=== PATIENT | female | born 1980 | race African-American/Black ===

== ENCOUNTER 2017-11-04 17:15 | Emergency (ER) | payer SELFPAY ==
--- NOTE | 2017-11-04 20:42 | ER ---
Nurse's Notes [facility] Name: Carissa Colorado Age: 37 yrs Sex: Female : 1980 Arrival Date: 11/04/2017 Time: 17:18 Bed Waiting Private MD: out of town, doctor Diagnosis: Presentation: 11/04 17:20 Presenting complaint: Patient states: "I have a lot of pressure in my uterus and when I sv pass a big clot it just fills back up." Started yesterday. c/o abd cramping. Transition of care: patient was not received from another setting of care. Onset of symptoms was November 03, 2017. 17:20 Method Of Arrival: Ambulatory sv 17:20 Acuity: MANDA 3 sv Triage Assessment: 17:20 General: Appears uncomfortable, obese, Behavior is calm, cooperative, appropriate for sv age. Pain: Complains of pain in right lower quadrant and left lower quadrant Pain currently is 7 out of 10 on a pain scale. Quality of pain is described as crampy, Is intermittent. Neuro: Level of Consciousness is awake, alert, obeys commands, Oriented to person, place, time, situation, Moves all extremities. Full function Gait is steady, Speech is normal. Respiratory: Respiratory effort is even, unlabored, Respiratory pattern is regular, symmetrical. Derm: Skin is normal. Historical: - Allergies: 17:23 Sulfa (Sulfonamide Antibiotics); sv - Home Meds: 17:23 phentermine oral oral [Active]; sv - PMHx: 17:23 legally blind; sv - PSHx: 17:23 Knee surgery; Ankle surgery; ; sv - Immunization history:: Adult Immunizations up to date. - Social history:: Smoking status: Patient uses tobacco products, smokes one pack cigarettes per day. - Ebola Screening: : No symptoms or risks identified at this time. Vital Signs: 17:22 BP 129 / 57; Pulse 86; Resp 18; Temp 97.7(TE); Pulse Ox 99% ; Weight 83.91 kg; Height 5 sv ft. 1 in. (154.94 cm); Pain 7/10; 17:22 Body Mass Index 34.95 (83.91 kg, 154.94 cm) sv ED Course: 17:18 Patient arrived in ED. mr 17:19 out of town, doctor is Private Physician. mr 17:22 Triage completed. sv 17:23 Arm band placed on right wrist. sv Administered Medications: No medications were administered Outcome: 20:42 Eloped from waiting room, before seeing physician Time discovered patient gone: November 04 lp 2018 at 20:42 20:42 Patient left the ED. lp1 Signatures: Miguelina Siddiqui RN RN sv Karen Gavin mr Martina Poe RN RN lp1 Corrections: (The following items were deleted from the chart) 17:24 17:22 BP 129 / 57; Pulse 86bpm; Resp 18bpm; Pulse Ox 99%; 83.91 kg; Height 5 ft. 1 in.; sv BMI: 34.9; Pain 7/10; sv
[2017-11-04 20:55] VITALS: BP 129/57; TEMP 97.7; O2SAT 99
== END 2017-11-04 20:42 | disposition left against medical advice (07) ==
LOC: ER 17:15
DX: Z53.21 Procedure and treatment not carried out due to patient leaving prior to being seen by health care provider (principal)
CPT/HCPCS: 99281

== ENCOUNTER 2018-04-25 17:23 | Emergency (ER) | payer SELFPAY ==
[2018-04-25] MEDS ORDERED: IBUPROFEN 400 MG TAB ONE (17:50)
--- NOTE | 2018-04-25 18:25 | RAD REPORT ---
EXAM DESCRIPTION: RAD - Tib Fib Left - 04/25/2018 6:17 pm CLINICAL HISTORY: fall today;Pain COMPARISON: None FINDINGS: Left tibia/ fibula and left foot - multiple projections are submitted. No fracture or dislocation is identified.
--- NOTE | 2018-04-25 19:16 | EDPHYS ---
Physician Documentation [facility] Name: Carissa Colorado Age: 37 yrs Sex: Female : 1980 Arrival Date: 04/25/2018 Time: 17:24 Bed 20 Private MD: None, None ED Physician Angelito Pierre HPI: 04/25 17:45 This 37 yrs old Black Female presents to ER via Ambulatory with complaints of Fall cp Injury - LEG. 17:45 Details of fall: The patient fell from an upright position, while walking. cp 17:45 Onset: The symptoms/episode began/occurred today. Associated injuries: The patient cp sustained left knee and left lower leg, contusion, painful injury. Severity of symptoms: in the emergency department the symptoms are unchanged, despite home interventions. 17:45 Patient reports trip and stumble, causing her to strike left lower leg against cp furniture today. 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 - Social history:: Smoking status: Patient uses tobacco products, denies chronic smoking, but will smoke occasionally. - Ebola Screening: : No symptoms or risks identified at this time. ROS: 18:00 Constitutional: Negative for body aches, chills, fever, poor PO intake. cp 18:00 Eyes: Negative for injury, pain, redness, and discharge. cp 18:00 ENT: Negative for drainage from ear(s), ear pain, sore throat, difficulty swallowing, difficulty handling secretions. 18:00 Cardiovascular: Negative for chest pain, edema, palpitations. 18:00 Respiratory: Negative for cough, shortness of breath, wheezing. 18:00 Abdomen/GI: Negative for abdominal pain, vomiting, diarrhea, constipation. 18:00 Back: Negative for pain at rest, pain with movement, radiated pain. 18:00 MS/extremity: Positive for pain, tenderness, Negative for decreased range of motion, deformity, erythema, paresthesias, warmth. 18:00 Skin: Negative for cellulitis, rash. 18:00 Neuro: Negative for altered mental status, headache, loss of consciousness, syncope, near syncope, weakness. 18:00 All other systems are negative. Exam: 18:05 Constitutional: The patient appears in no acute distress, alert, awake, non-toxic, well cp developed, well nourished. 18:05 Head/Face: Normocephalic, atraumatic. cp 18:05 Eyes: Periorbital structures: appear normal, Conjunctiva: normal, no exudate, no injection, Lids and lashes: appear normal, bilaterally. 18:05 ENT: External ear(s): are unremarkable, Nose: is normal, Mouth: Lips: moist, Posterior pharynx: is normal, airway is patent, Voice: is normal. 18:05 Neck: ROM/movement: is normal, is supple, without pain, no range of motions limitations, no nuchal rigidity. 18:05 Chest/axilla: Inspection: normal. 18:05 Cardiovascular: Rate: normal, Rhythm: regular. 18:05 Respiratory: the patient does not display signs of respiratory distress, Respirations: normal, no use of accessory muscles, no retractions, no splinting, no tachypnea, labored breathing, is not present. 18:05 Abdomen/GI: Inspection: abdomen appears normal. 18:05 Back: pain, is absent, ROM is normal. 18:05 Musculoskeletal/extremity: Extremities: grossly normal except: noted in the left duarte and left knee: pain, tenderness, noted well healed surgical scar anterior left knee, There is no evidence of decreased ROM, deformity, swelling, Perfusion: the extremity is normally perfused throughout, Sensation intact. 18:05 Skin: cellulitis, is not appreciated, no rash present. Vital Signs: 17:31 BP 118 / 60; Pulse 95; Resp 18; Temp 97.3; Pulse Ox 98% on R/A; Weight 83.91 kg; Height la1 5 ft. 1 in. (154.94 cm); 18:44 BP 144 / 78; Pulse 92; Resp 19; Pulse Ox 100% on R/A; Pain 7/10; em 17:31 Body Mass Index 34.96 (83.91 kg, 154.94 cm) la1 MDM: 17:33 Patient medically screened. cp 18:00 Differential diagnosis: contusion, fracture. cp 18:58 Data reviewed: vital signs, nurses notes, radiologic studies, plain films. cp 18:58 Test interpretation: by ED physician or midlevel provider: plain radiologic studies. cp Counseling: I had a detailed discussion with the patient and/or guardian regarding: the historical points, exam findings, and any diagnostic results supporting the discharge/admit diagnosis, radiology results, to return to the emergency department if symptoms worsen or persist or if there are any questions or concerns that arise at home. Response to treatment: the patient's symptoms have mildly improved after treatment, and as a result, I will discharge patient. 04/25 17:42 Order name: XRAY Tib Fib LEFT cp 04/25 17:42 Order name: XRAY Foot LEFT 3 View cp 04/25 18:58 Order name: Crutches; Complete Time: 19:14 cp 04/25 18:58 Order name: Leonardo wrap-joint; Complete Time: 19:14 cp Administered Medications: 17:49 Drug: Ibuprofen 800 mg Route: PO; em 19:01 Follow up: Response: No adverse reaction em Disposition: 04/25/18 18:59 Discharged to Home. Impression: Pain in left lower leg, Pain in left foot. - Condition is Stable. - Discharge Instructions: Elastic Bandage and RICE, Musculoskeletal Pain. - Prescriptions for Anaprox DS 550 mg Oral Tablet - take 1 tablet by ORAL route every 12 hours As needed; 20 tablet. - Medication Reconciliation Form, Thank You Letter, Antibiotic Education, Prescription Opioid Use form. - Follow up: Private Physician; When: 5 - 6 days; Reason: Recheck today's complaints. - Problem is new. - Symptoms have improved. Addendum: 04/27/2018 11:09 Co-signature as Attending Physician, Angelito Pierre MD. g s Signatures: Dispatcher [employer] [facility] Jamison Damian, FOOD SERVICE UTILITY WORKER FOOD SERVICE UTILITY WORKER Abhijit Gruber RN RN la1 Wes Koroma PA PA cp Angelito Pierre MD MD gs Corrections: (The following items were deleted from the chart) 04/25 19:15 18:59 04/25/2018 18:59 Discharged to Home. Impression: Pain in left lower leg; Pain in em left foot. Condition is Stable. Forms are Medication Reconciliation Form, Thank You Letter, Antibiotic Education, Prescription Opioid Use. Follow up: Private Physician; When: 5 - 6 days; Reason: Recheck today's complaints. Problem is new. Symptoms have improved. cp
--- NOTE | 2018-04-25 19:16 | ER ---
Nurse's Notes [facility] Name: Carissa Colorado Age: 37 yrs Sex: Female : 1980 Arrival Date: 04/25/2018 Time: 17:24 Bed 20 Private MD: None, None Diagnosis: Pain in left lower leg;Pain in left foot Presentation: 04/25 17:30 Presenting complaint: Patient states: I was at work and bumped in to something on my la1 left duarte and now the pain is radiating up my leg. Transition of care: patient was not received from another setting of care. Onset of symptoms was April 25, 2018. Risk Assessment: Do you want to hurt yourself or someone else? Patient reports no desire to harm self or others. Initial Sepsis Screen: Does the patient meet any 2 criteria? No. Patient's initial sepsis screen is negative. Does the patient have a suspected source of infection? No. Patient's initial sepsis screen is negative. Care prior to arrival: None. 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 - Social history:: Smoking status: Patient uses tobacco products, denies chronic smoking, but will smoke occasionally. - Ebola Screening: : No symptoms or risks identified at this time. Screenin:43 Abuse screen: Denies threats or abuse. Nutritional screening: No deficits noted. em Tuberculosis screening: No symptoms or risk factors identified. Fall Risk None identified. Assessment: 17:46 General: Appears in no apparent distress. uncomfortable, Behavior is calm, cooperative. em Pain: Complains of pain in left leg Pain currently is 9 out of 10 on a pain scale. Pain began 2 hours ago. Neuro: Level of Consciousness is awake, alert, obeys commands, Oriented to person, place, time, situation. Cardiovascular: Capillary refill < 3 seconds Patient's skin is warm and dry. Respiratory: Airway is patent Respiratory effort is even, unlabored, Respiratory pattern is regular, symmetrical. GI: Abdomen is round non-distended. : No signs and/or symptoms were reported regarding the genitourinary system. EENT: No signs and/or symptoms were reported regarding the EENT system. Derm: Skin is intact, Skin is pink, warm \T\ dry. Musculoskeletal: Capillary refill < 3 seconds, Range of motion: limited in left knee and left ankle Swelling absent Reports pain in left knee, left duarte and dorsum of left foot. 17:46 Reassessment: I agree with assessment completed by Jamison Damian LVN. aa5 18:43 Reassessment: Patient appears in no apparent distress at this time. Patient and/or em family updated on plan of care and expected duration. Pain level reassessed. Patient is alert, oriented x 3, equal unlabored respirations, skin warm/dry/pink. rates pain 7/10. Vital Signs: 17:31 BP 118 / 60; Pulse 95; Resp 18; Temp 97.3; Pulse Ox 98% on R/A; Weight 83.91 kg; Height la1 5 ft. 1 in. (154.94 cm); 18:44 BP 144 / 78; Pulse 92; Resp 19; Pulse Ox 100% on R/A; Pain 7/10; em 17:31 Body Mass Index 34.96 (83.91 kg, 154.94 cm) la1 ED Course: 17:24 Patient arrived in ED. sb2 17:25 None, None is Private Physician. sb2 17:31 Triage completed. la1 17:31 Arm band placed on right wrist. la1 17:32 Wes Koroma PA is PHCP. cp 17:32 Angelito Pierre MD is Attending Physician. cp 17:35 Jamison Damian LVN is Primary Nurse. em 17:43 Patient has correct armband on for positive identification. Bed in low position. Call em light in reach. 18:15 XRAY Tib Fib LEFT In Process Unspecified. EDMS 18:15 XRAY Foot LEFT 3 View In Process Unspecified. EDMS 19:14 No provider procedures requiring assistance completed. Patient did not have IV access em during this emergency room visit. Crutch training done. Leonardo wrap to left knee. Administered Medications: 17:49 Drug: Ibuprofen 800 mg Route: PO; em 19:01 Follow up: Response: No adverse reaction em Outcome: 18:59 Discharge ordered by . cp 19:14 Discharged to home with crutches. em 19:14 Condition: good 19:14 Discharge instructions given to patient, Instructed on discharge instructions, follow up and referral plans. medication usage, Demonstrated understanding of instructions, follow-up care, medications, Prescriptions given X 1. 19:15 Patient left the ED. em Signatures: Dispatcher [employer] EDJamison Lopez, ESTHETICIAN SPA ESTHETICIAN SPA em Sheba Israel RN RN aa5 Abhijit Bermudez RN RN la1 Wes Koroma PA PA cp Billeau, Sheri sb2
[2018-04-25 19:36] VITALS: TEMP 97.3
[2018-04-25 19:37] VITALS: BP 144/78; O2SAT 100
--- NOTE | 2018-04-27 09:25 | RAD REPORT ---
EXAM DESCRIPTION: RAD - Foot Left 3 View - 04/25/2018 6:17 pm CLINICAL HISTORY: Fall today;Pain COMPARISON: None FINDINGS: Left tibia/ fibula and left foot - multiple projections are submitted. No fracture or dislocation is identified.
== END 2018-04-25 19:15 | disposition home or self-care (01) ==
LOC: ER 17:23
DX: M79.662 Pain in left lower leg (principal); M79.672 Pain in left foot; W01.190A Fall on same level from slipping, tripping and stumbling with subsequent striking against furniture, initial encounter; Y93.01 Activity, walking, marching and hiking; H54.8 Legal blindness, as defined in USA
CPT/HCPCS: 99284

== ENCOUNTER 2021-04-26 06:00 | Emergency (ER) | payer OTHER ==
--- OUTSIDE RECORDS SUMMARY | 2021-04-26 06:03 | XMS REPORT | Continuity of Care Document ---
:[address] [facility] t Address [address] [place] [address] Care Team Providers Name Role Phone MILAGROS BRO Primary Care Physician Unavailable DANIELA UP Attending Clinician Unavailable Kayce TALBOT Attending Clinician Unavailable Bishnu GARNER, R Attending Clinician Ramos GOETZ Attending Clinician Unavailable Zoe Petersen MD Attending Clinician Pcp-Lab Attending Clinician Unavailable Milagros Bro MD Attending Clinician Doctor Unassigned, Name Attending Clinician Unavailable SNOWDEN Attending Clinician Unavailable MILAGROS BRO Attending Clinician Unavailable 2, Lab Attending Clinician Unavailable Kyung GARNER, Romy Attending Clinician Unavailable Benjamin GARNER, October Attending Clinician DANIELA UP Admitting Clinician Unavailable Payers Payer Name Policy Type Policy Number Effective Date Expiration Date [place] [facility] [id number] 2007 00:00:00 [employer] [id number] 2018 OF [facility] 00:00:00 Problems Condition Condition Condition Status Onset Resolution Last Treating Co mments Source Name Details Category Date Date Treatment Clinician Date Right Right Disease Active Univers facial facial 8-25 ity of pain pain 00:00: [place] [address] Medical Branch Eye Eye Disease Active Univers swelling, swelling, 8-25 ity of right right 00:00: [place] [facility] Dizzy Dizzy Disease Active Univers spells spells 8-25 ity of 00:00: [place] 00 Medical Branch Pain in Pain in Disease Active Univers both lower both lower 8-25 it y of legs legs 00:00: [place] [facility] Breast Breast Disease Active Univers pain pain 8-25 ity of 00:00: [place] [facility] Tobacco Tobacco Disease Active Univers use use 8-25 ity of disorder disorder 00:00: [place] [facility] Obesity Obesity Disease Active Univers (BMI (BMI 8-23 ity of 30-39.9) 30-39.9) 00:00: [place] [facility] Stress Stress Disease Active Univers incontinen incontinen 8-23 it y of ce ce 00:00: [place] [facility] Allergies, Adverse Reactions, Alerts Allergy Allergy Status Severity Reaction(s) Onset Inactive Treating Comm ents Source Name Type Date Date Clinician Sulfa Propensi Active Itching Univers (Sulfona ty to 3-05 ity of mide adverse 00:00: [place] Antibiot reaction 00 Medica l ics) s Branch SULFA Drug Active ITCHING Univers (SULFONA Class 3-05 ity of MIDE 00:00: [place] ANTIBIOT 00 Medical ICS) Branch Social History Social Habit Start Date Stop Date Quantity Comments Source Sex Assigned At Universit y of [facility] Exposure to Not sure [facility] SARS-CoV-2 (event) [facility] Tobacco use and 2020-03-21 2020-03-21 Never used Universit y of exposure 00:00:00 00:00:00 [facility] Cigarettes smoked 2020-03-21 2020-03-21 Univers ity of current (pack per 00:00:00 00:00:00 ) - Reported Branch Cigarette 2020-03-21 2020-03-21 University of pack-years 00:00:00 00:00:00 [facility] Alcohol intake 2020-03-21 2020-03-21 Current University 00:00:00 00:00:00 [facility]-drinker [facility] alcohol [place] (finding) History of tobacco 2018-12-09 Cigar Smoker Univ ersity of use 00:00:00 [facility] Smoking Status Start Date Stop Date Source Former smoker 2020-03-21 00:00:00 2020-03-21 00:00:00 Universi ty of [facility] Current some day 2019-04-09 00:00:00 [facility] smoker Medical Branch Medications Ordered Filled Start Stop Current Ordering Indication Dosage Frequency Signature Comments Components Source Medication Medication Date Date Medication? Clinician (SIG) Name Name phentermine 2019-0 2020- No 37.5mg Take 37.5 Univers 37.5 mg 7-03 07-03 mg by ity of capsule 20:30: 00:00 mouth [place] 18 :00 every Medical morning. Branch phentermine 2020- No 37.5mg Take 37.5 Univers 37.5 mg 7-03 07-03 mg by ity of capsule 20:30: 00:00 mouth [place] 18 :00 every Medical morning. Branch meloxicam 2019-0 Yes [id number] 7.5mg Take 1 Univers 7.5 mg 7-03 9107 tablet by ity of tablet 00:00: mouth [place] 00 daily. Medical Branch meloxicam 2019-0 Yes [id number] 7.5mg Take 1 Univers 7.5 mg 7-03 9107 tablet by ity of tablet 00:00: mouth [place] 00 daily. [facility] Branch meloxicam 2019-0 Yes [id number] 7.5mg Take 1 Univers 7.5 mg 7-03 9107 tablet by ity of tablet 00:00: mouth [place] 00 daily. Medical Branch meloxicam 2019-0 Yes [id number] 7.5mg Take 1 Univers 7.5 mg 7-03 9107 tablet by ity of tablet 00:00: mouth [place] 00 daily. Medical Branch meloxicam 2019-0 Yes [id number] 7.5mg Take 1 Univers 7.5 mg 7-03 9107 tablet by ity of tablet 00:00: mouth [place] 00 daily. [facility] Branch meloxicam 2019-0 Yes [id number] 7.5mg Take 1 Univers 7.5 mg 7-03 9107 tablet by ity of tablet 00:00: mouth [place] 00 daily. Medical Branch meloxicam 2019-0 Yes [id number] 7.5mg Take 1 Univers 7.5 mg 7-03 9107 tablet by ity of tablet 00:00: mouth [place] 00 daily. [facility] Branch meloxicam 2019-0 Yes [id number] 7.5mg Take 1 Univers 7.5 mg 7-03 9107 tablet by ity of tablet 00:00: mouth [place] 00 daily. [facility] meloxicam 2019-0 Yes [id number] 7.5mg Take 1 Univers 7.5 mg 7-03 9107 tablet by ity of tablet 00:00: mouth [place] 00 daily. [facility] meloxicam 2020-0 Yes [id number] 7.5mg Take 1 Univers 7.5 mg 7-03 9107 tablet by ity of tablet 00:00: mouth [place] 00 daily. [facility] meloxicam 2020-0 Yes [id number] 7.5mg Take 1 Univers 7.5 mg 7-03 9107 tablet by ity of tablet 00:00: mouth [place] 00 daily. [facility] meloxicam 2020-0 Yes [id number] 7.5mg Take 1 Univers 7.5 mg 7-03 9107 tablet by ity of tablet 00:00: mouth [place] 00 daily. [facility] meloxicam 2020-0 Yes [id number] 7.5mg Take 1 Univers 7.5 mg 7-03 9107 tablet by ity of tablet 00:00: mouth [place] 00 daily. [facility] meloxicam 2020-0 Yes [id number] 7.5mg Take 1 Univers 7.5 mg 7-03 9107 tablet by ity of tablet 00:00: mouth [place] 00 daily. [facility] meloxicam 2019-0 Yes [id number] 7.5mg Take 1 Univers 7.5 mg 7-03 9107 tablet by ity of tablet 00:00: mouth [place] 00 daily. [facility] meloxicam 2020-0 Yes [id number] 7.5mg Take 1 Univers 7.5 mg 7-03 9107 tablet by ity of tablet 00:00: mouth [place] 00 daily. [facility] meloxicam 2020-0 Yes [id number] 7.5mg Take 1 Univers 7.5 mg 7-03 9107 tablet by ity of tablet 00:00: mouth [place] 00 daily. [facility] meloxicam 2020-0 Yes [id number] 7.5mg Take 1 Univers 7.5 mg 7-03 9107 tablet by ity of tablet 00:00: mouth [place] 00 daily. [facility] meloxicam 2020-0 Yes [id number] 7.5mg Take 1 Univers 7.5 mg 7-03 9107 tablet by ity of tablet 00:00: mouth [place] 00 daily. [facility] meloxicam 2020-0 Yes [id number] 7.5mg Take 1 Univers 7.5 mg 7-03 9107 tablet by ity of tablet 00:00: mouth [place] 00 daily. [facility] Branch meloxicam 2020-0 Yes [id number] 7.5mg Take 1 Univers 7.5 mg 7-03 9107 tablet by ity of tablet 00:00: mouth [place] 00 daily. [facility] Branch meloxicam 2020-0 Yes [id number] 7.5mg Take 1 Univers 7.5 mg 7-03 9107 tablet by ity of tablet 00:00: mouth [place] 00 daily. [facility] Branch meloxicam 2020-0 Yes [id number] 7.5mg Take 1 Univers 7.5 mg 7-03 9107 tablet by ity of tablet 00:00: mouth [place] 00 daily. [facility] meloxicam 2020-0 Yes [id number] 7.5mg Take 1 Univers 7.5 mg 7-03 9107 tablet by ity of tablet 00:00: mouth [place] 00 daily. [facility] meloxicam 2020-0 Yes [id number] 7.5mg Take 1 Univers 7.5 mg 7-03 9107 tablet by ity of tablet 00:00: mouth [place] 00 daily. Medical Branch benzoyl 2019-0 Yes [id number] Apply to U nivers peroxide 4 5-09 area(s) 2 ity of % external 00:00: (two) [place] liquid 00 times Medical daily. Branch benzoyl 2019-0 Yes [id number] Apply to U nivers peroxide 4 5-09 area(s) 2 ity of % external 00:00: (two) [place] liquid 00 times Medical daily. Branch benzoyl 2019-0 Yes [id number] Apply to U nivers peroxide 4 5-09 area(s) 2 ity of % external 00:00: (two) [place] liquid 00 times Medical daily. Branch benzoyl 2019-0 Yes [id number] Apply to U nivers peroxide 4 5-09 area(s) 2 ity of % external 00:00: (two) [place] liquid 00 times Medical daily. Branch benzoyl 2019-0 2020- No [id number] Apply to Univers peroxide 4 5-09 07-03 area(s) 2 ity of % external 00:00: 00:00 (two) [place] liquid 00 :00 times Medical daily. Branch benzoyl 2019-0 2020- No [id number] Apply to Univers peroxide 4 5-09 07-03 area(s) 2 ity of % external 00:00: 00:00 (two) [place] liquid 00 :00 times Medical daily. Branch clindamycin 2018-0 Yes 300mg Take 1 Uni vers 300 mg 1-13 capsule by ity of capsule 00:00: mouth (four) Medical times Branch daily. HYDROcodone 2018-0 Yes 1{tbl} Take 1 Un paul -acetaminop 1-13 tablet by ity of hen 5-325 00:00: mouth [place] mg tablet 00 every 4 Medical (four) Branch hours as needed for Pain (scale 7-10). clindamycin 2018-0 Yes 300mg Take 1 Uni vers 300 mg 1-13 capsule by ity of capsule 00:00: mouth 4 (four) Medical times Branch daily. HYDROcodone 2018-0 Yes 1{tbl} Take 1 Un paul -acetaminop 1-13 tablet by ity of hen 5-325 00:00: mouth [place] mg tablet 00 every 4 Medical (four) Branch hours as needed for Pain (scale 7-10). clindamycin 2018-0 Yes 300mg Take 1 Uni vers 300 mg 1-13 capsule by ity of capsule 00:00: mouth (four) Medical times Branch daily. HYDROcodone 2018-0 Yes 1{tbl} Take 1 Un paul -acetaminop 1-13 tablet by ity of hen 5-325 00:00: mouth [place] mg tablet 00 every 4 Medical (four) Branch hours as needed for Pain (scale 7-10). clindamycin 2018-0 Yes 300mg Take 1 Uni vers 300 mg 1-13 capsule by ity of capsule 00:00: mouth (four) Medical times Branch daily. HYDROcodone 2018-0 Yes 1{tbl} Take 1 Un paul -acetaminop 1-13 tablet by ity of hen 5-325 00:00: mouth [place] mg tablet 00 every 4 Medical (four) Branch hours as needed for Pain (scale 7-10). clindamycin 2018-0 2020- No 300mg Take 1 Un paul 300 mg 1-13 07-03 capsule by ity of capsule 00:00: 00:00 mouth 4 [place] 00 :00 (four) Medical times Branch daily. HYDROcodone 2018-0 2020- No 1{tbl} Take 1 U nivers -acetaminop 1-13 07-03 tablet by it y of hen 5-325 00:00: 00:00 mouth [place] mg tablet 00 :00 every 4 Medical (four) Branch hours as needed for Pain (scale 7-10). clindamycin 2019- No 300mg Take 1 Un paul 300 mg 06-21 capsule by ity of capsule 00:00: 00:00 mouth 4 [place] 00 :00 (four) Medical times Branch daily. HYDROcodone 2019- No 1{tbl} Take 1 U nivers -acetaminop 06-21 tablet by it y of hen 5-325 00:00: 00:00 mouth [place] mg tablet 00 :00 every 4 Medical (four) Branch hours as needed for Pain (scale 7-10). phentermine Yes 37.5mg Take 37.5 Univers 37.5 mg 8-23 mg by ity of capsule 18:10: mouth [place] 17 every Medical morning. Branch phentermine Yes 37.5mg Take 37.5 Univers 37.5 mg 8-23 mg by ity of capsule 18:10: mouth [place] 17 every Medical morning. Branch phentermine Yes 37.5mg Take 37.5 Univers 37.5 mg 8-23 mg by ity of capsule 18:10: mouth [place] 17 every Medical morning. Branch phentermine Yes 37.5mg Take 37.5 Univers 37.5 mg 8-23 mg by ity of capsule 18:10: mouth [place] 17 every Medical morning. Branch BENZACLIN Yes [id number] 50g Apply 50 g Univers PUMP 1-5 % 8-04 to ity of gel pump 00:00: affected [place] 00 area(s) Medical every Branch morning. BENZACLIN 2016- Yes [id number] 50g Apply 50 g Univers PUMP 1-5 % 8-04 to ity of gel pump 00:00: affected [place] 00 area(s) Medical every Branch morning. BENZACLIN 2016- Yes [id number] 50g Apply 50 g Univers PUMP 1-5 % 8-04 to ity of gel pump 00:00: affected [place] 00 area(s) Medical every Branch morning. BENZACLIN 2016- Yes [id number] 50g Apply 50 g Univers PUMP 1-5 % 8-04 to ity of gel pump 00:00: affected [place] 00 area(s) Medical every Branch morning. BENZACLIN 2020- No [id number] 50g Apply 50 g Univers PUMP 1-5 % 01-10 to ity of gel pump 00:00: 00:00 [place] :[place] area(s) Medical every Branch morning. BENZACLIN 2020- No [id number] 50g Apply 50 g Univers PUMP 1-5 % 01-10 to ity of gel pump 00:00: 00:00 [place] :[place] area(s) Medical every Branch morning. metFORMIN Yes Univers 500 mg 8-02 ity of tablet 00:00: [place] 00 Medical Branch metFORMIN 2016-0 Yes Univers 500 mg 8-02 ity of tablet 00:00: [place] 00 [facility] Branch metFORMIN 2016-0 Yes Univers 500 mg 8-02 ity of tablet 00:00: [place] 00 Medical Branch metFORMIN 2016-0 Yes Univers 500 mg 8-02 ity of tablet 00:00: [place] 00 Medical Branch metFORMIN 2016-0 2020- No Univers 500 mg 8-02 - ity of tablet 00:00: 00:00 [place] 00 :00 Medical Branch metFORMIN 2016-0 2020- No Univers 500 mg 8-07 16-03 ity of tablet 00:00: 00:00 [place] 00 :00 Medical Branch Vital Signs Vital Name Observation Time Observation Value Comments Source Body weight 2020-03-21 15:33:00 107.956 [facility] BMI 2020-03-21 15:33:00 44.97 kg/m2 [facility] [place] [facility] Body weight 2020-03-21 15:33:00 107.956 kg Universi [facility] BMI 2020-03-21 15:33:00 44.97 kg/m2 [facility] Systolic blood 2019-12-10 20:28:00 139 mm[Hg] Univer sity [facility] pressure [facility] Diastolic blood 2019-12-10 20:28:00 80 mm[Hg] [facility] Heart rate 2019-12-10 20:28:00 98 /min [facility] Body height 2019-12-10 20:28:00 154.9 cm Universi [facility] Body weight 2019-12-10 20:28:00 107.956 kg [facility] BMI 2019-12-10 20:28:00 44.97 kg/m2 [facility] Procedures Procedure Date / Time Performing Clinician Source Performed RHEUMATOID FACTOR 2020-03-21 18:01:[address] [facility] C-REACTIVE PROTEIN 2020-03-21 18:01:00 Saulo Petersen [facility] FREE T4 2020-03-21 18:01:00 Saulo Petersen [facility] THYROID STIMULATING 2020-03-21 18:01:00 Saulo Petersen [facility] HORMONE [facility] SEDIMENTATION RATE 2020-03-21 18:01:00 Saulo Petersen [facility] OU GONIOSCOPY, BOTH EYES 2020-03-21 00:00:00 Saulo Petersen [facility] OU EXTERNAL EYE PHOTOS, 2020-03-21 00:00:00 Daniel Goetz [facility] BOTH EYES Medical Branch INSURANCE CORRESPONDENCE 2020-02-24 05:01:00 Doctor Unassigned, [facility] [place] [facility] INSURANCE CORRESPONDENCE 2020-02-01 05:01:00 Doctor Unassigned, [facility] Name Medical [place] ASSIGNMENT OF BENEFITS 2019-11-05 20:29:26 Doctor Unassigned, [facility] Name Medical [place] Encounters Start End Encounter Admission Attending Care Care Encounter Source Date/Time Date/Time Type Type Clinicians Facility Department ID 2021-04-08 Outpatient R JEOVANNY [facility] [place] [id number] Univers 03:28:[address] [facility] 2021-06-04 2021-06-04 Outpatient R [facility] [id number] Univers 09:00:00 09:00:[id number] [facility] 2020-08-30 2020-08-30 Outpatient R [facility] [id number] Univers 09:30:00 09:30:[id number] [facility] 2020-08-30 2020-08-30 Outpatient R JEOVANNY [facility] [id number] Univers 09:30:00 09:30:[address] [facility] 2020-08-17 2020-08-17 Outpatient R [facility] [id number] Univers 16:00:00 16:00:00 [id number] ity [facility] 2020-08-17 2020-08-17 Outpatient R JEOVANNY [facility] [id number] Univers 16:00:00 16:00:00 [place] ity of [facility] 2020-05-10 2020-05-10 Outpatient R DANIELLE TALBOT [facility] [id number] Univers 11:30:00 11:30:00 ity [facility] 2020-05-10 2020-05-10 Outpatient R DANIELLE TALBOT [facility] [id number] Univers 11:30:00 11:30:00 ity [facility] 2020-04-10 2020-04-10 Telephone Daniel Goetz UNIVERSIT 1.2.840.11 [id number] Univers 00:00:00 00:00:00 R Y [id number] it y of [facility] 4.2.7.2.686 [place] as BANK [id number] [facility]. [address] [place] [address] 2020-04-10 2020-04-10 Telephone Daniel GoetzIT 1.2.840.11 [id number] 00:00:00 00:00:00 R Y [id number] NATIONAL 4.2.7.2.686 BANK [id number] DG. 136 2020-04-03 2020-04-03 Outpatient R DANIEL GOETZ [facility] [id number] Univers 13:00:00 13:00:00 [id number] ity [facility] 2020-04-03 2020-04-03 Outpatient R DANIEL GOETZ [facility] [id number] Univers 00:00:00 00:00:00 ity of [facility] 2020-03-28 2020-03-28 Outpatient R DANIEL GOETZ [facility] [id number] Univers 13:00:00 13:00:00 ity of [facility] 2020-03-28 2020-03-28 Outpatient R DANIEL GOETZ [facility] [id number] Univers 00:00:00 00:00:00 ity [facility] 2020-03-23 2020-03-23 Saulo Davila [facility] 1.2.840.114 [id number] Univers 00:00:00 00:00:00 Management [facility] [id number] ity of [place] [id number] [facility] [address] [place] 2020-03-23 2020-03-23 Case Saulo Petersen [facility] 1.2.840.114 [id number] 00:00:00 00:00:00 Management [facility] [id number] [id number] [id number] [facility] 2020-03-21 2020-03-21 Office Daniel Goetz 1.2.840.114 [id number] Univers 09:57:19 18:00:09 Visit R Y 350.1.13.10 it y of NATIONAL 4.2.7.2.686 [place] as BANK [phone] [facility] BLDG. [address] [place] 2020-03-21 2020-03-21 Office Daniel Goetz 1.2.840.114 [id number] 09:57:19 18:00:09 Visit R Y [id number] NATIONAL 4.2.7.2.686 BANK [id number] [facility]. 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-Lab [facility] 1.2.840.114 [id number] [facility] [place] [facility] 12:50:07 16:11:40 Visit Daniel Goetz 350.1.13.10 ity of C[place] 4[place]2.7.2.686 [place] [id number] [address] 2020-03-21 2020-03-21 Outpatient R DANIEL GOETZ [facility] [id number] Univers 09:45:00 09:45:00 [id number] ity of [facility] 2020-03-21 2020-03-21 Outpatient R DANIEL GOETZ [facility] [id number] Univers 09:45:00 09:45:00 ity of [facility] 2020-03-21 2020-03-21 Telephone Daniel Goetz 1.2.840.11 [id number] Univers 00:00:00 00:00:00 R Y 350.1.13.10 it y of NATIONAL 4.2.7.2.686 [place] as BANK [id number] [facility]. [address] [place] 2020-03-21 2020-03-21 Telephone Daniel Goetz 1.2.840.11 [id number] 00:00:00 00:00:00 R Y 350.1.13.10 NATIONAL 4.2.7.2.686 BANK [id number] [facility]. 136 2020-02-24 2020-02-24 Telephone [facility] 1.2.840.114 [id number] Univers 00:00:00 00:00:00 [facility] 350.1.13.10 it y of Jazieljulisa [place] 4.2.7.2.686 [place] as Professio [phone] [address] 2020-02-24 2020-02-24 Telephone [facility] 1.2.840.114 [id number] Univers 00:00:00 00:00:00 [facility] [id number] it y of [place] 4.2.7.2.686 [place] Professio [id number] [address] 2020-02-24 2020-02-24 Orders Doctor DEDRICK 1.2.840.114 [id number] Univers 00:00:00 00:00:00 Only Unassigned, [place] 350.1.13.10 ity of [place] [facility] 4.2.7.2.686 [place] as [id number] [facility] [address] [place] 2020-02-24 2020-02-24 Orders Doctor TSE 1.2.840.114 [id number] 00:00:00 00:00:00 Only Unassigned[place] 350.1.13.10 [place] [facility] 4.2.7.2.686 [id number] [facility] 2020-02-01 2020-02-01 Telephone [facility] 1.2.840.114 [id number] Univers 00:00:00 00:00:00 Simon [place] 350.1.13.10 i ty of [place]7.2.686 [place] Profess[place] [phone] [address] 2020-02-01 2020-02-01 Orders Doctor DEDRICK 1.2.840.114 [id number] Univers 00:00:00 00:00:00 Only Unassigned[place] 350.1.13.10 [facility] 4.2.7.2.686 [place] as [id number] [address] 2020-01-31 2020-01-31 Telephone [facility] 1.2.840.114 [id number] Univers 00:00:00 00:00:00 Simon Kramer 350.1.13.10 i ty of [place]7.2.686 [place] Profess[place] [id number] [address] 2020-01-28 2020-01-28 Telephone [facility] 1.2.840.114 [id number] Univers 00:00:00 00:00:00 Simon Kramer 350.1.13.10 i ty of [place] 4[place]7.2.686 [place] Profess[place] [phone] [address] 2020-01-10 2020-01-10 Outpatient BISHNU DANIEL [facility] [id number] Univers 14:00:00 14:00:[address] [facility] 2020-01-10 2020-01-10 Outpatient R BISHNU DANIEL [facility] [id number] Univers 14:00:00 14:00:00 ity [facility] 2019-12-20 2019-12-20 Outpatient R SP [facility] [id number] Univers 14:00:00 14:00:00 [facility] [id number] [facility]-12-20 2019-12-20 Outpatient R SP [facility] [id number] Univers 14:00:00 14:00:[address] [facility] 2019-12-16 2019-12-16 Telephone [facility] 1.2.840.114 [id number] Univers 00:00:00 00:00:00 Simon [facility] 350.1.13.10 it y of [place]ul[place] 4.2.7.2.686 [place] Professio [phone] [facility] [address] [place] Office [facility] 2019-12-15 2019-12-15 Telephone [facility] 1.2.840.114 [id number] Univers 00:00:00 00:00:00 [facility] 350.1.13.10 it y of [place] 4.2.7.2.686 [place] Professio [phone] [address] 2019-12-15 2019-12-15 [facility] 1.2.840.114 [id number] Univers 00:00:00 00:00:00 [facility] 350.1.13.10 it y of [place] 4.2.7.2.686 [place] Professio [phone] [address] 2019-12-13 2019-12-13 Outpatient R [facility] [id number] Univers 08:45:00 08:45:[address] [place] [address] 2019-12-13 2019-12-13 [facility] [id number] Univers 08:45:00 08:45:[address] [facility] 2019-12-13 2019-12-13 Blueprint Machine Operator 2, Adc Lab [facility] 1.2.840.114 [id number] Univers 08:18:15 08:33:15 Visit Simon Bro 350.1.1 3.10 ity of [place] Profess[place] [phone] [facility] [address] [facility] 2019-12-13 2019-12-13 [facility] 1.2.840.114 [id number] Univers 00:00:00 00:00:00 [facility] 350.1.13.10 it y of [place] 4.2.7.2.686 [place] Professio [phone] [address] 2019-12-10 2019-12-10 Office [facility] 1.2.840.114 [id number] Univers 15:17:56 15:47:56 Visit Simon Kramer 350.1.13.10 i ty of [place] 4.2.7.2.686 [place] Profess[place] [phone] [place] dical nal [facility] 2019-12-10 2019-12-10 Outpatient R ADALI [facility] [id number] Univers 15:15:00 15:15:00 SIMON ity [facility] 2019-12-10 2019-12-10 Outpatient [facility] [id number] Univers 15:15:00 15:15:00 [facility] 2019-12-10 2019-12-10 [facility] 1.2.840.114 [id number] Univers 00:00:00 00:00:00 [facility] 350.1.13.10 it y of Milagros Kramer 4.2.7.2.686 [place] Professio [phone] [place] dicmn nal [address] [place] [address] 2019-11-30 2019-11-30 Outpatient R [facility] [id number] Univers 09:30:00 09:30:00 [facility] [id number] [facility] 2019-11-30 2019-11-30 Outpatient R [facility] [id number] Univers 09:30:00 09:30:00 [facility] 2019-11-05 2019-11-05 Office Solis Tracey UNIVERSIT 1 .2.840.114 [id number] Univers 15:30:02 16:16:45 Visit Sissy lAexander [facility] 350.1.13.1 0 ity of [place] [facility] [id number] [id number] [address] 2019-11-05 2019-11-05 Outpatient R [facility] [id number] [facility] 15:00:00 15:00:00 [id number] ity [facility] 2019-11-05 2019-11-05 Outpatient R [facility] [id number] [facility] 15:00:00 15:00:00 ity [facility] 2019-11-05 2019-11-05 Orders Doctor TSE [id number] [facility] 00:00:00 00:00:00 Only Unassigned, [place] [id number] ity of [place] [facility] [id number] [place] [phone] [address] Results Test Description Test Time Test Comments Results Result Comments Source C-REACTIVE PROTEIN 2020-03-21 21:09:00 Test Item Value Reference Range Interpretation Comme nts CRP (test code = 1761645412) 1.3 mg/dL <0.8 H Lab Interpretation (test code = 66630-8) [facility]normal [id number] 21:09:00 Test Item Value Reference Range Interpretation Comments RF (test code = <20 See_Comment [Automated message] [id number]) The system Saisei generated this result transmitted ref erence range: <20 IU/m L. The reference range was not used to int erpret this result as normal/abnormal . Lab Interpretation (test Normal code = 29354-5) [facility] [id number] 20:56:00 Test Item Value Reference Range Interpretation Comments TSH (test code = See_Comment [Automated message] [id number]) The system Saisei generated this result transmitted ref erence range: 0.45 - 4 .70 mIU/L. The refe rence range was not u sed to interpret this result as normal/abnor mal. Lab Interpretation (test Normal code = 17323-6) [facility] [id number] 20:45:00 Test Item Value Reference Range Interpretation Comments ESR (test code = See_Comment [Automated message] [id number]) The system Saisei generated this result transmitted ref erence range: 0 - 20 m m/HR. The reference r denise was not used to interpret this result as normal/abnor mal. Lab Interpretation (test Normal code = 20521-5) [facility] [id number] 20:44:00 Test Item Value Reference Range Interpretation Comments FREE T4 (test code = See_Comment [Autom ated message] [id number]) The system Saisei generated this result transmitted ref erence range: 0.78 - 2 .20 ng/dL:. The ref erence range was not u sed to interpret this result as normal/abnor mal. Lab Interpretation (test Normal code = 95649-7) [facility] EXTERNAL EYE PHOTOS, BOTH [id number] 00:00:00Obtained to uploaded to chart : [facility] GONIOSCOPY, BOTH [id number] 00:00:00-Gonio (03/21/20 ) - open angles OUOD: Saud grade: D30q trace PTMOS: Saud grade: D30q trace PTM Open angle, no evidence of secondary glaucoma or angle closure [facility]Un[facility] EXTERNAL EYE PHOTOS, BOTH [id number] 00:00:00Obtained to uploaded to chart : [facility] GONIOSCOPY, BOTH [id number] 00:00:00-Gonio (03/21/20 ) - open angles OUOD: Saud grade: D30q trace PTMOS: Saud grade: D30q trace PTM Open angle, no evidence of secondary glaucoma or angle closure [facility]UnGu[facility] EXTERNAL EYE PHOTOS, BOTH [id number] 00:00:00Obtained to uploaded to chart : [facility]ON[facility], BOTH [id number] 00:00:00-Gonio (03/21/20 ) - open angles OUOD: Saud grade: D30q trace PTMOS: Saud grade: D30q trace PTM Open angle, no evidence of secondary glaucoma or [facility]Un[facility]
[2021-04-26] MEDS ORDERED: METOCLOPRAMIDE 10 MG/2mL INJ ONE (06:34)
[2021-04-26] MEDS ORDERED: KETOROLAC 30 MG/ML INJ ONE (06:35)
[2021-04-26] MEDS ORDERED: DIPHENHYDRAMINE 50 MG/ML VIAL ONE (06:35)
[2021-04-26 07:22] LABS: Absolute Lymphocytes (CBC) 3.4 K/uL (0.7-4.9); Basophils % 0.8 % (0-1.3); Hematocrit 42.4 % (36.0-45.0); Lymphocytes % 45.9 % (15.3-44.8); MPV 8.5 fL (7.6-11.3); RBC Red Blood Cell Count 4.97 M/uL (3.86-4.86)
[2021-04-26 07:34] LABS: BUN Blood Urea Nitrogen 9 mg/dL (7-18); Bicarbonate 26 mmol/L (21-32); Glucose Level 91 mg/dL (74-106); Magnesium 2.3 mg/dL (1.8-2.4); Sodium Level 142 mmol/L (136-145)
--- NOTE | 2021-04-26 08:28 | RAD REPORT ---
EXAM DESCRIPTION: CT - Head Brain Wo Cont - 04/26/2021 6:51 am CLINICAL HISTORY: PAIN Headache, drowsiness COMPARISON: No comparisons TECHNIQUE: All CT scans are performed using dose optimization technique as appropriate and may inclu de automated exposure control or mA/KV adjustment according to patient size. FINDINGS: No intracranial hemorrhage, hydrocephalus or extra-axial fluid collection.No areas of brai n edema or evidence of midline shift. The paranasal sinuses and mastoids are clear. The calvarium is intact. IMPRESSION: No acute intracranial abnormality.
--- NOTE | 2021-04-26 08:31 | RAD REPORT ---
EXAM DESCRIPTION: US - Extremity Venous Uni Ltd - 04/26/2021 7:32 am CLINICAL HISTORY: PAIN Leg swelling and edema. COMPARISON: No comparisons FINDINGS: Right lower extremity venous system was interrogated with Doppler technique. Normal flow, compressibility and augmentation was noted. There is no DVT present. IMPRESSION: No evidence of right lower extremity deep venous thrombosis.
--- NOTE | 2021-04-26 08:41 | ER ---
Nurse's Notes [facility] Name: Carissa Colorado Age: 40 yrs Sex: Female : 1980 Arrival Date: 04/26/2021 Time: 06:03 Bed 15 Private MD: Diagnosis: Migraine without aura, intractable;Pain in right leg Presentation: 04/26 06:16 Chief complaint: Patient states: she is having right leg pain which radiates up her leg bb into her groin x 3 to 4 days also has swelling to right eye and a headache, pt has had similar leg pain a year ago and took gabapentin but is not taking it now pt is having difficulty sleeping. Coronavirus screen: At this time, the client does not indicate any symptoms associated with coronavirus-19. Ebola Screen: No symptoms or risks identified at this time. Initial Sepsis Screen: Does the patient meet any 2 criteria? No. Patient's initial sepsis screen is negative. Does the patient have a suspected source of infection? No. Patient's initial sepsis screen is negative. Risk Assessment: Do you want to hurt yourself or someone else? Patient reports no desire to harm self or others. Onset of symptoms was April 22, 2021. 06:16 Method Of Arrival: Ambulatory bb 06:16 Acuity: MANDA 3 bb Triage Assessment: 07:22 Headache History: The patient has had previous headaches and this one is similar to cc4 previous episodes. General: Appears uncomfortable, Behavior is cooperative, restless. Pain: Complains of pain in right eye and right leg Pain currently is 10 out of 10 on a pain scale. 07:26 Pain: Also complains of photophobia. ap3 [employer]: 06:19 LMP 04/19/2021 bb Historical: - Allergies: 06:19 Sulfa (Sulfonamide Antibiotics); bb - Home Meds: 06:19 phentermine Oral [Active]; bb 06:19 ozimpic [Active]; bb - PMHx: 06:19 legally blind; retinitis pigmentosis; bb - PSHx: 06:19 right ankle surgery; left knee surgery; bb - Immunization history:: Adult Immunizations up to date, Client reports receiving the 2nd dose of the Covid vaccine. - Social history:: Smoking status: Patient denies any tobacco usage or history of. Patient/guardian denies using alcohol, street drugs. Screenin:05 Abuse screen: Denies threats or abuse. Nutritional screening: No deficits noted. cc4 Tuberculosis screening: No symptoms or risk factors identified. Fall Risk None identified. Assessment: 06:38 General: Appears distressed, uncomfortable, Behavior is cooperative, restless. Pain: cc4 Complains of pain in right leg Pain radiates to from right ankle to right groin Pain currently is 10 out of 10 on a pain scale. at worst was 10 out of 10 on a pain scale. level that patient reports is acceptable is 0 out of 10 on a pain scale. Quality of pain is described as aching, Pain began 4 days ago that has increased tonight. Is continuous, Alleviated by nothing. Aggravated by increased activity. Neuro: No deficits noted. Level of Consciousness is awake, alert, obeys commands, Oriented to person, place, time, situation. Cardiovascular: No deficits noted. Capillary refill < 3 seconds Patient's skin is warm and dry. Respiratory: No deficits noted. Airway is patent Respiratory effort is even, unlabored, Respiratory pattern is regular, symmetrical. GI: No signs and/or symptoms were reported involving the gastrointestinal system. : No signs and/or symptoms were reported regarding the genitourinary system. EENT: Reports pain in right eye since redness noted right sclera. being legally blind with "swelling of right eye" x 4 days.. Derm: No deficits noted. Skin is intact. Musculoskeletal: Capillary refill < 3 seconds, Range of motion: limited in right leg. 06:55 General: RACHEL Elise in to see with orders received.. 4 07:05 Reassessment: # 20 g angiocath inserted right AC x 1 attempt with blood drawn \\T\\ sent to cc4 lab; medications given slow IVP as ordered. 07:26 Reassessment: Patient and/or family updated on plan of care and expected duration. Pain ap3 level reassessed. Patient is alert, oriented x 3, equal unlabored respirations, skin warm/dry/pink. 09:15 Reassessment: patient is awaiting her ride to come pick her up. ap3 Vital Signs: 06:16 BP 109 / 68; Pulse 80; Resp 16 S; Temp 97.9(O); Pulse Ox 97% on R/A; Weight 104.33 kg bb (R); Height 5 ft. 1 in. (154.94 cm) (R); Pain 6/10; 07:25 BP 107 / 49; Pulse 66; Resp 18; Pulse Ox 97% on R/A; ap3 08:57 BP 110 / 56; Pulse 70; Pulse Ox 97% on R/A; ap3 06:16 Body Mass Index 43.46 (104.33 kg, 154.94 cm) ED Course: 06:03 Patient arrived in ED. bp1 06:04 Redd Nava PA is PHCP. jr8 06:04 Wes Baez MD is Attending Physician. jr8 06:19 Triage completed. bb 06:19 Arm band placed on Patient placed in an exam room, on a stretcher, on pulse oximetry. bb 06:33 Indira Amaya, RN is Primary Nurse. cc4 06:37 XRAY Hip RIGHT 2 view Sent. cc4 06:37 CT Head Brain wo Cont Sent. cc4 06:38 US Extremity Venous Unilateral Ltd Sent. cc4 06:51 CT Head Brain wo Cont In Process Unspecified. EDMS 06:57 XRAY Hip RIGHT 2 view In Process Unspecified. EDMS 07:05 Patient has correct armband on for positive identification. Bed in low position. Call cc4 light in reach. Side rails up X2. 07:18 CBC with Diff Sent. cc4 07:18 Basic Metabolic Panel Sent. cc4 07:18 Magnesium Sent. cc4 07:25 Report received from REGINALD Bobby. ap3 07:31 US Extremity Venous Unilateral Ltd In Process Unspecified. EDMS 09:08 No provider procedures requiring assistance completed. IV discontinued, intact, ap3 bleeding controlled, No redness/swelling at site. Pressure dressing applied. 09:18 Primary Nurse role handed off by Indira Amaya, REGINALD ap3 09:18 Rachel Kimble, REGINALD is Primary Nurse. ap3 Administered Medications: 07:05 Drug: Reglan (metoCLOPramide) 10 mg Route: IVP; Site: right antecubital; cc4 08:58 Follow up: Response: No adverse reaction ap3 07:05 Drug: Benadryl (diphenhydrAMINE) 25 mg Route: IVP; Site: right antecubital; cc4 08:58 Follow up: Response: No adverse reaction ap3 07:05 Drug: Ketorolac 15 mg Route: IVP; Site: right antecubital; cc4 08:58 Follow up: Response: No adverse reaction ap3 Outcome: 08:40 Discharge ordered by MD. newell 09:09 Discharged to home ambulatory. ap3 09:09 Condition: good 09:09 Discharge instructions given to patient, Instructed on discharge instructions, follow up and referral plans. Demonstrated understanding of instructions, follow-up care. 09:35 Patient left the ED. ap3 Signatures: Dispatcher [employer] EDFabi Chapman RN RN Redd Garcia PA PA jr8 Rachel Kimble RN RN ap3 Bethany Bolton Christie, RN RN cc4
--- NOTE | 2021-04-26 08:41 | RAD REPORT ---
EXAM DESCRIPTION: RAD - Hip Right 2 View - 04/26/2021 6:57 am CLINICAL HISTORY: PAIN COMPARISON: No comparisons FINDINGS: Narrowing of the right femoroacetabular joint space is noted compatible with mild to moder ate osteoarthritis. No acute fracture, dislocation or AVN pattern observed.
--- NOTE | 2021-04-26 08:42 | EDPHYS ---
Physician Documentation [facility] Name: Carissa Colorado Age: 40 yrs Sex: Female : 1980 Arrival Date: 04/26/2021 Time: 06:03 Bed 15 Private MD: ED Physician Wes Baez HPI: 04/26 08:23 This 40 yrs old Black Female presents to ER via Ambulatory with complaints of Eye jr8 Swelling, Headache. 08:23 This is a 40-year-old female patient that presented to the emergency room with jr8 complaints of headache and pain behind the right eye with swelling along with right leg pain. Patient stated that she has had similar symptoms in the past pertaining to her leg but has never been able to get a diagnosis as to why her leg hurts. Patient has been evaluated in the past for this. Patient denies any recent trauma to the head or to the leg.. 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 - Social history:: Smoking status: Patient denies any tobacco usage or history of. Patient/guardian denies using alcohol, street drugs. ROS: 08:23 Eyes: Positive for pain. jr8 08:23 MS/extremity: Positive for pain, tenderness, of the right leg. 08:23 Neuro: Positive for headache. 08:23 All other systems are negative. Exam: 08:23 Constitutional: This is a well developed, well nourished patient who is awake, alert, jr8 and in no acute distress. Eyes: Pupils equal round and reactive to light, extra-ocular motions intact. Lids and lashes normal. Conjunctiva and sclera are non-icteric and not injected. Cornea within normal limits. Periorbital areas with no swelling, redness, or edema. ENT: Nares patent. No nasal discharge, no septal abnormalities noted. Tympanic membranes are normal and external auditory canals are clear. Oropharynx with no redness, swelling, or masses, exudates, or evidence of obstruction, uvula midline. Mucous membranes moist. Neck: Trachea midline, no thyromegaly or masses palpated, and no cervical lymphadenopathy. Supple, full range of motion without nuchal rigidity, or vertebral point tenderness. No Meningismus. Cardiovascular: Regular rate and rhythm with a normal S1 and S2. No gallops, murmurs, or rubs. Normal PMI, no JVD. No pulse deficits. Respiratory: Lungs have equal breath sounds bilaterally, clear to auscultation and percussion. No rales, rhonchi or wheezes noted. No increased work of breathing, no retractions or nasal flaring. Abdomen/GI: Soft, non-tender, with normal bowel sounds. No distension or tympany. No guarding or rebound. No evidence of tenderness throughout. Back: No spinal tenderness. No costovertebral tenderness. Full range of motion. Skin: Warm, dry with normal turgor. Normal color with no rashes, no lesions, and no evidence of cellulitis. Neuro: Awake and alert, GCS 15, oriented to person, place, time, and situation. Cranial nerves II-XII grossly intact. Motor strength 5/5 in all extremities. Sensory grossly intact. Cerebellar exam normal. Normal gait. 08:23 Musculoskeletal/extremity: Extremities: grossly normal except: noted in the right leg: pain, tenderness, Pain and tenderness to the muscles of the inner right thigh. No swelling, erythema, cellulitis noted. No bruising noted. No calf circumferential difference noted. Pulses 2+ DP and PT on both sides with normal sensation and range of motion. Remainder of the unaffected extremities unremarkable. Vital Signs: 06:16 BP 109 / 68; Pulse 80; Resp 16 S; Temp 97.9(O); Pulse Ox 97% on R/A; Weight 104.33 kg bb (R); Height 5 ft. 1 in. (154.94 cm) (R); Pain 6/10; 07:25 BP 107 / 49; Pulse 66; Resp 18; Pulse Ox 97% on R/A; ap3 08:57 BP 110 / 56; Pulse 70; Pulse Ox 97% on R/A; ap3 06:16 Body Mass Index 43.46 (104.33 kg, 154.94 cm) bb MDM: 06:04 Patient medically screened. jr8 08:37 Data reviewed: vital signs, nurses notes, lab test result(s), radiologic studies, CT jr8 scan, plain films, ultrasound. Data interpreted: Pulse oximetry: on room air is 97 %. Interpretation: normal. Counseling: I had a detailed discussion with the patient and/or guardian regarding: the historical points, exam findings, and any diagnostic results supporting the discharge/admit diagnosis, lab results, radiology results, the need for outpatient follow up, a family practitioner, to return to the emergency department if symptoms worsen or persist or if there are any questions or concerns that arise at home. Response to treatment: the patient's symptoms have markedly improved after treatment. ED course: There is no acute findings on physical exam with patient. Patient markedly improved and feeling better overall. Discussed with patient pertaining to her right leg that this is most likely derived either from her low back or possibly her hip joint as she has moderate changes compatible with osteoarthritis present in the right hip. There is no acute findings on the ultrasound of her leg or plain film. Pertaining to her head believe that there is just a common migraine. No ocular findings noted on physical exam to suggest glaucoma, optic neuritis or any other true ocular pathologic process. Patient is good with this and will follow with her PCP and knows to come back if she were to worsen at any point time.. 04/26 06:32 Order name: CBC with Diff; Complete Time: 07:49 04/26 06:32 Order name: Basic Metabolic Panel; Complete Time: 07:49 04/26 06:32 Order name: Magnesium; Complete Time: 07:49 8 04/26 06:32 Order name: CT Head Brain wo Cont; Complete Time: 08:34 04/26 06:32 Order name: XRAY Hip RIGHT 2 view; Complete Time: 08:52 04/26 06:32 Order name: US Extremity Venous Unilateral Ltd; Complete Time: 08:34 8 04/26 06:32 Order name: IV; Complete Time: 07:18 Administered Medications: 07:05 Drug: Reglan (metoCLOPramide) 10 mg Route: IVP; Site: right antecubital; cc4 08:58 Follow up: Response: No adverse reaction ap3 07:05 Drug: Benadryl (diphenhydrAMINE) 25 mg Route: IVP; Site: right antecubital; cc4 08:58 Follow up: Response: No adverse reaction ap3 07:05 Drug: Ketorolac 15 mg Route: IVP; Site: right antecubital; cc4 08:58 Follow up: Response: No adverse reaction ap3 Disposition: 04/27 07:17 Co-signature as Attending Physician, Wes Baez MD I agree with the assessment and norris plan of care. Disposition Summary: 04/26/21 08:40 Discharge Ordered Location: Home jr8 Problem: new jr8 Symptoms: have improved jr8 Condition: Stable jr8 Diagnosis - Migraine without aura, intractable jr8 - Pain in right leg jr8 Followup: jr8 - With: Private Physician - When: 1 - 2 days - Reason: Recheck today's complaints, Continuance of care, Re-evaluation by your physician Discharge Instructions: - Discharge Summary Sheet jr8 - Migraine Headache jr8 - Musculoskeletal Pain jr8 Forms: - Medication Reconciliation Form jr8 - Thank You Letter jr8 - Antibiotic Education jr8 - Prescription Opioid Use jr8 Signatures: Dispatcher [employer] EDMS Wes Baez MD MD cha Ballard, Brenda RN RN bb Redd Nava PA PA jr8 Indira Amaya RN RN cc4 Rachel Kimble RN ap3 Corrections: (The following items were deleted from the chart) 04/26 08:53 08:37 ED course: There is no acute findings on physical exam with patient. Patient jr8 markedly improved and feeling better overall. Discussed with patient pertaining to her right leg that this is most likely derived either from her low back or possibly musculoskeletal in general. There is no acute findings on the ultrasound of her leg or plain film. Pertaining to her head believe that there is just a common migraine. No ocular findings noted on physical exam to suggest glaucoma, optic neuritis or any other true ocular pathologic process. Patient is good with this and will follow with her PCP and knows to come back if she were to worsen at any point time.. jr8
[2021-04-26 09:51] VITALS: TEMP 97.9; O2SAT 97
[2021-04-26 09:53] VITALS: BP 110/56
== END 2021-04-26 09:35 | disposition home or self-care (01) ==
LOC: ER 06:00
DX: G43.019 Migraine without aura, intractable, without status migrainosus (principal); M79.604 Pain in right leg; Z88.2 Allergy status to sulfonamides
CPT/HCPCS: 85025; 80048; 36415; 83735; 70450; 73502; 93971; 96375; 96374; 99284; J2765; J1200